=== PATIENT | male | born 1960 | race Caucasian/White ===

== ENCOUNTER 2022-04-17 17:00 | Emergency (ER) | payer OTHER ==
[2022-04-17] MEDS ORDERED: Lidocaine 1% with EPINEPHrine 1:100,000 20 ML MDV INJECT ONE (17:27)
[2022-04-17] MEDS ORDERED: Sodium Chloride 0.9% 1,000 ML IV SCH (18:00)
[2022-04-17] MEDS ORDERED: Sodium Chloride 0.9% 1,000 ML ONE (18:25)
[2022-04-17 18:26] VITALS: BP 163/83; PULSE 88
== END 2022-04-17 18:50 ==
LOC: CC.ED 17:00
DX: S41.132A Puncture wound without foreign body of left upper arm, initial encounter (principal); W26.0XXA Contact with knife, initial encounter
CPT/HCPCS: 99284; J7030